=== PATIENT | female | born 1980 | race Two or more races ===

== ENCOUNTER 2018-02-08 17:03 | Emergency (ER) | payer MEDICAID ==
[~2018-02-08] VITALS: Ht 162.6 cm; Wt 63.5 kg
[2018-02-08 17:10] VITALS: BP 122/69
[2018-02-08 18:00] LABS: HEMATOCRIT 47.4 % (37.0-47.0); HEMOGLOBIN 16.7 G/DL (12.0-16.0); MEAN CORPUSCULAR VOLUME 95 FL (80-99); PLATELET COUNT 235 K/UL (150-450); RED CELL DISTRIBUTION WIDTH 10.8 % (11.6-14.8); WHITE BLOOD COUNT 9.2 K/UL (4.8-10.8)
[2018-02-08 18:01] LABS: BASOPHILS % (AUTO) 0.4 % (0.0-2.0); EOSINOPHILS % (AUTO) 0.4 % (0.0-3.0); LYMPHOCYTES % (AUTO) 7.2 % (20.0-45.0); MONOCYTES % (AUTO) 4.3 % (1.0-10.0); NEUTROPHILS % (AUTO) 87.7 % (45.0-75.0)
--- NOTE | 2018-02-08 18:06 | Emergency Room Report ---
History of Present Illness General Chief Complaint: Vomiting Source: Patient, EMS Present Illness HPI 37yo f reports that she been having nausea, vomiting and diarrhea since earlier today. She thinks she is in withdrawal. Denies f/c, SOB, abd pain. Allergies: Coded Allergies: PENICILLINS (Verified Allergy, Unknown, 02/08/18) Patient History Past Medical History: see triage record Last Menstrual Period: 3 days ago Reviewed Nursing Documentation: PMH: Agreed; PSxH: Agreed Nursing Documentation-PMH History Of Psychiatric Problem: Yes - Schizophrenia Review of Systems All Other Systems: negative except mentioned in HPI Physical Exam Vital Signs Date Time Temp Pulse Resp B/P (MAP) Pulse Ox O2 Delivery O2 Flow Rate FiO2 02/08/18 16:58 98.4 96 20 132/82 99 Room Air 98.4 Sp02 EP Interpretation: reviewed, normal General Appearance: no apparent distress, alert, non-toxic Head: normocephalic Eyes: bilateral eye normal inspection, bilateral eye PERRL, bilateral eye EOMI ENT: normal ENT inspection, hearing grossly normal, normal pharynx, no angioedema, normal voice, moist mucus membranes Neck: normal inspection, full range of motion, supple, supple/symm/no masses Respiratory: chest non-tender, lungs clear, normal breath sounds, chest symmetrical, palpation of chest normal Cardiovascular #1: normal peripheral pulses, regular rate, rhythm Cardiovascular #2: 2+ radial (R), 2+ radial (L) Gastrointestinal: normal inspection, non tender, soft, no mass, no guarding, no rebound Rectal: deferred Genitourinary: normal inspection, no CVA tenderness Musculoskeletal: back normal, gait/station normal, normal range of motion, non- tender, no calf tenderness Neurologic: alert, responsive, racquet maker III-XII nml as tested, motor strength/tone normal, sensory intact, speech normal Psychiatric: judgement/insight normal, memory normal, mood/affect normal Skin: normal color, no rash, warm/dry, normal turgor Lymphatic: no adenopathy Medical Decision Making Diagnostic Impression: Primary Impression: Vomiting ER Course Pt refused an EKG, but i do not suspect acs. She isn't having any acute pain. labs unremarkable, chest and abdomen x-rayunremarkable, test, negative , patient discharged Chest X-Ray Diagnostic Results Chest X-Ray Diagnostic Results : Chest X-Ray Ordered: Yes # of Views/Limited/Complete: 1 View Indication: Other - vomiting EP Interpretation: Yes Interpretation: no consolidation, no effusion, no pneumothorax, no acute cardiopulmonary disease Impression: No acute disease Electronically Signed by: Doug Andersen MD Other X-Ray Diagnostic Results Other X-Ray Diagnostic Results : X-Ray ordered: KUB # of Views/Limited Vs Complete: 1 View Indication: Other - vomiting EP Interpretation: Yes PA Xray: Interpretation reviewed Interpretation: no dislocation, no soft tissue swelling, no fractures, nonspecific bowel gas, no sbo Impression: No acute disease Electronically Signed by: Doug Andersen MD Reevaluation Time: 19:19 Last Vital Signs Date Time Temp Pulse Resp B/P (MAP) Pulse Ox O2 Delivery O2 Flow Rate FiO2 02/08/18 17:10 98.4 74 20 122/69 99 Room Air 98.4 Status: improved Reevaluation Impression Patient resting calmly on the stretcher, no vomiting here, was given Zofran, has a soft nontender abdomen and will be discharged. Disposition: HOME, SELF-CARE Condition: Stable DOUG ANDERSEN M.D Feb 08, 2018 18:06
[2018-02-08 18:11] LABS: ANION GAP 10 mmol/L (5-15); BLOOD UREA NITROGEN 19 mg/dL (7-18); CALCIUM 9.2 MG/DL (8.5-10.1); CARBON DIOXIDE 24 MMOL/L (21-32); CHLORIDE 104 MMOL/L (98-107); CREATININE 0.6 MG/DL (0.55-1.30); POTASSIUM 3.7 MMOL/L (3.5-5.1); SODIUM 138 MMOL/L (136-145)
[2018-02-08 18:14] LABS: ALANINE AMINOTRANSFERASE 41 U/L (12-78); ALBUMIN 4.1 G/DL (3.4-5.0); ALBUMIN/GLOBULIN RATIO 1.1 (1.0-2.7); ALKALINE PHOSPHATASE 88 U/L (46-116); ASPARTATE AMINO TRANSFERASE 12 U/L (15-37); BILIRUBIN,TOTAL 0.6 MG/DL (0.2-1.0)
[2018-02-08 19:06] VITALS: BP 125/70
[2018-02-08] MEDS ORDERED: ZOFRAN4 M1 ORAL (19:29)
[2018-02-08 20:11] VITALS: BP 104/64
[2018-02-08 20:30] VITALS: BP 104/64
--- NOTE | 2018-02-09 10:42 | Diagnostic Imaging Report ---
Indication: Abdominal pain Comparison: None Single view of the abdomen obtained Findings: Bowel gas pattern is nonspecific. No mass, ectopic calcifications, or abnormal gas collections are identified. The bones are unremarkable. Impression: No acute findings
--- NOTE | 2018-02-09 10:43 | Diagnostic Imaging Report ---
Indication: Dyspnea Comparison: None A single view chest radiograph was obtained. Findings: Cardiomediastinal appearance is within normal limits for age. The lungs are clear. Pulmonary vascularity is appropriate. The diaphragmatic contour is smooth and costophrenic angles are sharp. No pleural effusions are identified. The bones are unremarkable. Impression: No acute findings
== END 2018-02-08 21:06 | disposition home or self-care (01) ==
LOC: EDBD 17:03 → EMR 18:58
DX: R11.2 Nausea with vomiting, unspecified (principal); R19.7 Diarrhea, unspecified; Z88.0 Allergy status to penicillin; F20.9 Schizophrenia, unspecified
CPT/HCPCS: 36415; 71045; 74018; 80053; 83605; 83690; 84484; 84703; 85025; 87040; 96361; 96374; 99284; J2405